=== PATIENT | female | born 1955 | race Two or more races ===

== ENCOUNTER 2017-08-16 00:22 | Inpatient (IN) | payer SELFPAY ==
[~2017-08-16] VITALS: Ht 154.9 cm; Wt 50.8 kg
[2017-08-16] MEDS ORDERED: IPRATROPIUM BROMIDE (0.02%) 0.5MG/2.5ML NEB HHN SCH (01:19)
[2017-08-16] MEDS ORDERED: ALBUTEROL (0.083%) 2.5MG/3ML NEB HHN SCH (01:19)
[2017-08-16] MEDS ORDERED: METHYLPREDNISOLONE SOD SUCC 125 MG/2 ML VIAL IV SCH (01:19)
[2017-08-16 01:54] LABS: BASOPHILS % 1.1 % (0.0-2.0); EOSINOPHILS % 3.5 % (0.0-5.0); HEMATOCRIT. 38.5 % (36.0-48.0); HEMOGLOBIN. 12.6 g/dL (12.0-16.0); LYMPHOCYTES % 27.9 % (20.0-50.0); MEAN CORPUSCULAR VOLUME 88.9 fL (81.0-99.0); MEAN PLATELET VOLUME 6.7 fl (7.4-10.4); MONOCYTES % 7.9 % (2.0-8.0); NEUTROPHILS % 59.6 % (40.0-76.0); PLATELET 252 x1000/uL (130-400); RED BLOOD CELL COUNT 4.33 mill/uL (4.2-5.4); RED CELL DISTRIBUTION WIDTH 13.6 % (11.6-14.6)
[2017-08-16 02:17] LABS: CARBON DIOXIDE 29 mEq/L (21-32); CHLORIDE 100 mEq/L (98-107); TROPONIN I < 0.02 ng/mL (0.00-0.04)
[2017-08-16] MEDS ORDERED: SODIUM CHLORIDE 0.9% 1,000 ML IV ONE (04:12)
[2017-08-16 06:30] VITALS: BP 154/78
[2017-08-16 08:00] VITALS: BP 154/74
[2017-08-16] MEDS ORDERED: DILTIAZEM HCL 30MG TABLET PO PRN (08:45)
[2017-08-16] MEDS ORDERED: LORAZEPAM 2MG/ML CPJ IV PRN (08:45)
[2017-08-16 09:06] VITALS: BP 154/74
[2017-08-16] MEDS: SODIUM CHLORIDE 0.45% 1,000 ML IV SCH ×2 (09:09→21:52)
[2017-08-16] MEDS: LEVOFLOXACIN 500MG PREMIX 100 ML IV SCH (11:13)
[2017-08-16] MEDS: ENOXAPARIN 40MG/0.4ML SYR SUBCUT SCH (11:14)
[2017-08-16] MEDS ORDERED: NON FORMULARY PATIENT HOME MED EA XX SCH (11:30)
[2017-08-16] MEDS ORDERED: MONT4TAB9 PO (11:38)
[2017-08-16] MEDS ORDERED: ATEN-42 PO (11:43)
[2017-08-16] MEDS ORDERED: MOME13HF INH (11:43)
[2017-08-16] MEDS ORDERED: ASPI-1159 PO (11:43)
[2017-08-16] MEDS ORDERED: LORA-249 PO (11:43)
[2017-08-16] MEDS ORDERED: ALBUTEROL (0.083%) 2.5MG/3ML NEB HHN PRN (11:45)
[2017-08-16 12:07] VITALS: BP 131/63
[2017-08-16 12:37] LABS: T4 FREE 1.42 ng/dL (0.76-1.46)
[2017-08-16 16:34] VITALS: BP 134/64
[2017-08-16] MEDS: METHYLPREDNISOLONE SOD SUCC 40 MG/ML VIAL IV SCH (17:34)
[2017-08-16 20:00] VITALS: BP 133/63
[2017-08-17] VITALS: BP 136/72
[2017-08-17] MEDS: METHYLPREDNISOLONE SOD SUCC 40 MG/ML VIAL IV SCH (05:36)
[2017-08-17 06:00] VITALS: BP 133/66
[2017-08-17 06:11] LABS: CARBON DIOXIDE 30 mEq/L (21-32); CHLORIDE 104 mEq/L (98-107)
[2017-08-17 06:18] LABS: HEMATOCRIT. 36.8 % (36.0-48.0); HEMOGLOBIN. 12.1 g/dL (12.0-16.0); MEAN CORPUSCULAR HEMOGLOBIN 29.1 pg (28.0-32.0); MEAN CORPUSCULAR VOLUME 88.3 fL (81.0-99.0); MEAN PLATELET VOLUME 7.3 fl (7.4-10.4); PLATELET 250 x1000/uL (130-400); RED BLOOD CELL COUNT 4.17 mill/uL (4.2-5.4); RED CELL DISTRIBUTION WIDTH 13.5 % (11.6-14.6)
[2017-08-17 08:00] VITALS: BP 129/65
[2017-08-17] MEDS: LEVOFLOXACIN 500MG PREMIX 100 ML IV SCH (10:05)
[2017-08-17] MEDS: ENOXAPARIN 40MG/0.4ML SYR SUBCUT SCH ×2 (10:05→10:07)
[2017-08-17] MEDS: SODIUM CHLORIDE 0.9% INJ 3ML FLUSH IVF SCH ×2 (10:06→14:00)
[2017-08-17 12:31] VITALS: BP 129/65
[2017-08-17 14:01] LABS: PLATELET ESTIMATE NORMAL
[2017-08-17 15:10] VITALS: BP 129/65
== END 2017-08-17 16:00 | disposition home or self-care (01) | DRG 140 ==
LOC: ER 00:23 → 6WST 03:14 → EDBEDREQ 03:24 → UNDOADMIN 04:35 → 6WST 04:35 → ENRESERV 04:48
PROVIDERS: ADMIT Hospitalist; ATTEND Hospitalist
DX: J44.1 Chronic obstructive pulmonary disease with (acute) exacerbation (principal); J45.901 Unspecified asthma with (acute) exacerbation; R73.9 Hyperglycemia, unspecified; Z88.0 Allergy status to penicillin
CPT/HCPCS: 36415; 71010; 80048; 80053; 83880; 84439; 84443; 84484; 85025; 85379; 93005; 94664; 96374; 99285; J1650; J1956; J2060; J2920; J2930; J7030; J7611

== ENCOUNTER 2018-08-15 16:20 | Emergency (ER) | payer OTHER ==
[~2018-08-15] VITALS: Ht 154.9 cm; Wt 64.0 kg
[~2018-08-15 16:20] MED LIST: ASPI-1159 PO; ATEN-42 PO; LORA-249 PO; MOME13HF INH; MONT4TAB9 PO
[2018-08-15] MEDS ORDERED: IPRATROPIUM BROMIDE (0.02%) 0.5MG/2.5ML NEB HHN STA (17:05)
[2018-08-15] MEDS ORDERED: METHYLPREDNISOLONE SOD SUCC 125 MG/2 ML VIAL IV STA (17:05)
[2018-08-15] MEDS ORDERED: ALBUTEROL (0.083%) 2.5MG/3ML NEB HHN STA ×2 (17:05→21:02)
[2018-08-15] MEDS ORDERED: MAGNESIUM 2 G PREMIX 50 ML IV ONE (17:15)
[2018-08-15 18:22] LABS: BASOPHILS % 1.1 % (0.0-2.0); EOSINOPHILS % 5.5 % (0.0-5.0); HEMATOCRIT. 39.7 % (36.0-48.0); HEMOGLOBIN. 13.1 g/dL (12.0-16.0); LYMPHOCYTES % 27.9 % (20.0-50.0); MEAN CORPUSCULAR HEMOGLOBIN 29.8 pg (28.0-32.0); MEAN CORPUSCULAR VOLUME 90.6 fL (81.0-99.0); MEAN PLATELET VOLUME 7.3 fl (7.4-10.4); MONOCYTES % 10.7 % (2.0-8.0); NEUTROPHILS % 54.8 % (40.0-76.0); PLATELET 225 x1000/uL (130-400); RED BLOOD CELL COUNT 4.39 mill/uL (4.2-5.4); RED CELL DISTRIBUTION WIDTH 13.5 % (11.6-14.6)
[2018-08-15 18:23] LABS: CHLORIDE 103 mEq/L (98-107)
[2018-08-15 21:59] VITALS: BP 132/77
== END 2018-08-15 22:00 | disposition home or self-care (01) ==
LOC: ER 16:41
DX: J44.1 Chronic obstructive pulmonary disease with (acute) exacerbation (principal); J06.9 Acute upper respiratory infection, unspecified; R73.9 Hyperglycemia, unspecified; Z79.82 Long term (current) use of aspirin; Z88.0 Allergy status to penicillin; Z79.899 Other long term (current) drug therapy
CPT/HCPCS: 71045; 80053; 83880; 84484; 85025; 93005; 94640; 96365; 96375; 99285; J2930; J3475; J7611

== ENCOUNTER 2020-11-20 18:33 | Emergency (ER) | payer MEDICARE, OTHER ==
[~2020-11-20] VITALS: Ht 160 cm; Wt 61.0 kg
[~2020-11-20 18:33] MED LIST changes: -ASPI-1159 PO; +ASPI-1497 PO
[2020-11-20] MEDS ORDERED: ACETAMINOPHEN 325MG TABLET PO STA (18:57)
[2020-11-20] MEDS ORDERED: LORAZEPAM 1MG TABLET PO ONE (19:45)
[2020-11-20] MEDS ORDERED: ATENOLOL 50 MG TABLET PO ONE (19:45)
[2020-11-20 20:27] LABS: BASOPHILS % 0.9 % (0.0-2.0); EOSINOPHILS % 0.4 % (0.0-5.0); HEMATOCRIT. 43.5 % (36.0-48.0); HEMOGLOBIN. 14.3 g/dL (12.0-16.0); LYMPHOCYTES % 17.4 % (20.0-50.0); MEAN CORPUSCULAR HEMOGLOBIN 28.5 pg (28.0-32.0); MEAN CORPUSCULAR VOLUME 86.9 fL (81.0-99.0); MEAN PLATELET VOLUME 7.9 fl (7.4-10.4); MONOCYTES % 14.7 % (2.0-8.0); NEUTROPHILS % 66.6 % (40.0-76.0); PLATELET 199 x1000/uL (130-400); RED BLOOD CELL COUNT 5.01 mill/uL (4.2-5.4); RED CELL DISTRIBUTION WIDTH 13.5 % (11.6-14.6)
[2020-11-20 22:53] LABS: CHLORIDE 100 mEq/L (98-107)
[2020-11-21 00:42] VITALS: BP 101/60
[2020-11-21] MEDS ORDERED: ATEN-42 PO (01:16)
== END 2020-11-21 01:47 | disposition home or self-care (01) ==
LOC: ER 18:33 → CANBEDREQ 11-21 16:08
DX: R00.0 Tachycardia, unspecified (principal); F41.9 Anxiety disorder, unspecified; Z76.0 Encounter for issue of repeat prescription; J45.909 Unspecified asthma, uncomplicated; Z79.82 Long term (current) use of aspirin
CPT/HCPCS: 36415; 80048; 80076; 83605; 84145; 84484; 85025; 85379; 93005; 99284

== ENCOUNTER 2023-03-13 00:55 | Inpatient (IN) | payer OTHER ==
[~2023-03-13] VITALS: Ht 152.4 cm; Wt 57.2 kg
[~2023-03-13 00:55] MED LIST changes: -MOME13HF INH; +MOME13HF11 INH
[2023-03-13] MEDS ORDERED: ALBUTEROL (0.083%) 2.5MG/3ML NEB HHN STA (01:41)
[2023-03-13] MEDS ORDERED: IPRATROPIUM BROMIDE (0.02%) 0.5MG/2.5ML NEB HHN STA (01:41)
[2023-03-13] MEDS ORDERED: METHYLPREDNISOLONE SOD SUCC 125 MG/2 ML VIAL IV STA (01:41)
[2023-03-13 03:04] LABS: HEMATOCRIT. 38.8 % (36.0-48.0); HEMOGLOBIN. 13.1 g/dL (12.0-16.0); MEAN CORPUSCULAR HEMOGLOBIN 29.5 pg (28.0-32.0); MEAN CORPUSCULAR VOLUME 87.2 fL (81.0-99.0); MEAN PLATELET VOLUME 7.5 fl (7.4-10.4); PLATELET 380 x1000/uL (130-400); RED BLOOD CELL COUNT 4.44 mill/uL (4.2-5.4); RED CELL DISTRIBUTION WIDTH 13.4 % (11.6-14.6)
[2023-03-13 03:42] LABS: PLATELET ESTIMATE NORMAL
[2023-03-13 03:45] LABS: CHLORIDE 92 mEq/L (98-107)
[2023-03-13] MEDS ORDERED: IPRATROPIUM/ALBUTEROL 0.5-3(2.5)MG/3ML NEB HHN ONE (04:30)
[2023-03-13] MEDS ORDERED: ACETAMINOPHEN 325MG TABLET PO PRN ×2 (06:30)
[2023-03-13] MEDS ORDERED: AZITHROMYCIN 500 MG in DEXT 5% WATER 250 ML IV SCH ×2 (06:30→06:45)
[2023-03-13] MEDS ORDERED: CLONIDINE 0.1MG TABLET PO PRN (06:30)
[2023-03-13] MEDS ORDERED: ONDANSETRON HCL 4MG/2ML INJ IV PRN (06:30)
[2023-03-13] MEDS ORDERED: MAGNESIUM/ALUMINUM HYDROXIDE/SIMETHICONE 30ML UDC PO PRN (06:30)
[2023-03-13] MEDS ORDERED: DOCUSATE SODIUM 100MG CAPSULE PO PRN (06:30)
[2023-03-13] MEDS ORDERED: AZITHROMYCIN 500MG/250ML 250 ML IV SCH (07:00)
[2023-03-13] MEDS: SODIUM CHLORIDE 0.9% 1,000 ML IV SCH ×2 (07:06→16:41)
[2023-03-13] MEDS: ENOXAPARIN 40MG/0.4ML SYR SUBCUT SCH (07:11)
[2023-03-13 07:16] LABS: HEMATOCRIT. 38.6 % (36.0-48.0); MEAN CORPUSCULAR HEMOGLOBIN 29.4 pg (28.0-32.0); MEAN PLATELET VOLUME 6.9 fl (7.4-10.4); PLATELET 381 x1000/uL (130-400); RED BLOOD CELL COUNT 4.44 mill/uL (4.2-5.4); RED CELL DISTRIBUTION WIDTH 13.4 % (11.6-14.6)
[2023-03-13 07:25] LABS: CHLORIDE 90 mEq/L (98-107)
[2023-03-13 07:40] LABS: HDL CHOLESTEROL 74 mg/dL (40-59); LDL CHOLESTEROL 90 mg/dL (5-100); T4 FREE 1.35 ng/dL (0.76-1.46)
[2023-03-13 08:34] LABS: BG BASE EXCESS 5.6 mmol/L (-2.0-2.0); BG CARBOXYHEMOGLOBIN 0.4 % (0.5-1.5); BG DEOXYHEMOGLOBIN 4.1 % (0.0-5.0); BG FRACTION INSPIRED OXYGEN 30; BG HCO3 ACT 31.8 mmol/L (22.0-26.0); BG METHEMOGLOBIN 0.3 % (0.0-1.5); BG OXYGEN SATURATION 95.9 % (92.0-98.5); BG OXYHEMOGLOBIN 95.2 % (94.0-97.0); BG PH 7.396 (7.350-7.450); BG PO2 81.4 mmHg (75.0-100.0); BG SAMPLE SITE RIGHT RADIAL; BG TOTAL HEMOGLOBIN 13.8 g/dL (12.0-18.0); BG VENT MODE MASK - BIPAP
[2023-03-13 09:01] LABS: FOLIC ACID (FOLATE) SERUM >20 ng/mL ng/mL (>5.38); VITAMIN B12 SERUM >2000 pg/mL pg/mL (211-911)
[2023-03-13 09:21] LABS: PLATELET ESTIMATE NORMAL
[2023-03-13 10:10] LABS: CLARITY URINE CLEAR (CLEAR); COLOR URINE YELLOW (YELLOW); KETONES URINE TRACE (NEGATIVE); LEUKOCYTE ESTERASE URINE NEGATIVE (NEGATIVE); NITRITE URINE NEGATIVE (NEGATIVE); OCCULT BLOOD URINE TRACE (NEGATIVE); PH URINE 6.5 (4.5-8.0); PROTEIN URINE NEGATIVE (NEGATIVE); SPECIFIC GRAVITY URINE 1.011 (1.005-1.030); UROBILINOGEN URINE 0.2 E.U./dL (0.2-1.0)
[2023-03-13] MEDS ORDERED: IPRATROPIUM/ALBUTEROL 0.5-3(2.5)MG/3ML NEB HHN PRN (11:00)
[2023-03-13 12:00] VITALS: BP 144/107
[2023-03-13] MEDS: IPRATROPIUM/ALBUTEROL 0.5-3(2.5)MG/3ML NEB HHN SCH ×2 (12:16→20:35)
[2023-03-13] MEDS: LISINOPRIL 20MG TABLET PO SCH (13:24)
[2023-03-13 14:00] VITALS: BP 126/70
[2023-03-13] MEDS ORDERED: DEXTROSE 50% WATER 50ML SYRINGE IV PRN (15:30)
[2023-03-13 16:00] VITALS: BP 125/59
[2023-03-13] MEDS: METHYLPREDNISOLONE SOD SUCC 125 MG/2 ML VIAL IV SCH ×2 (16:41→22:42)
[2023-03-13] MEDS: GUAIFENESIN 200MG/10ML SUGAR FREE UDC PO PRN ×2 (17:28→22:41)
[2023-03-13] MEDS: INSULIN LISPRO 100 UNITS/ML SUBCUT SCH ×2 (17:29→20:49)
[2023-03-13] MEDS: BLOOD SUGAR DIAGNOSTIC STRIP TEST SCH ×2 (17:30→20:41)
[2023-03-13 17:49] VITALS: BP 112/57
[2023-03-13 20:00] VITALS: BP 138/65
[2023-03-13] MEDS ORDERED: FAMOTIDINE 20MG TABLET PO SCH (21:00)
[2023-03-13 22:01] VITALS: BP 153/102
[2023-03-14] VITALS (13 sets, daily range): BP systolic 119–142; BP diastolic 52–79
[2023-03-14] MEDS: THROAT LOZENGES-BENZOCAINE/MENTH/CETYLPYRD CL LOZENGES MM PRN ×3 (00:08→20:44)
[2023-03-14] MEDS: IPRATROPIUM/ALBUTEROL 0.5-3(2.5)MG/3ML NEB HHN SCH ×7 (00:11→20:00)
[2023-03-14] MEDS: GUAIFENESIN 200MG/10ML SUGAR FREE UDC PO PRN ×2 (04:04→20:44)
[2023-03-14] MEDS: ENOXAPARIN 40MG/0.4ML SYR SUBCUT SCH (05:31)
[2023-03-14] MEDS: BLOOD SUGAR DIAGNOSTIC STRIP TEST SCH ×4 (07:30→20:38)
[2023-03-14] MEDS: INSULIN LISPRO 100 UNITS/ML SUBCUT SCH ×4 (08:00→20:43)
[2023-03-14] MEDS: METHYLPREDNISOLONE SOD SUCC 125 MG/2 ML VIAL IV SCH ×3 (08:18→22:34)
[2023-03-14] MEDS: AZITHROMYCIN 500MG in DEXTROSE 5% WATER 250ML IV SCH (08:18)
[2023-03-14] MEDS: LISINOPRIL 20MG TABLET PO SCH (08:22)
[2023-03-14] MEDS ORDERED: LORAZEPAM 1MG TABLET PO PRN (10:00)
[2023-03-14] MEDS: SODIUM CHLORIDE 0.9% 1,000 ML IV SCH (11:24)
[2023-03-14] MEDS: MONTELUKAST SODIUM 10MG TABLET PO SCH (18:11)
[2023-03-14] MEDS ORDERED: ACETYLCYSTEINE 200MG/ML 20% VIAL 4ML INH SCH (22:00)
[2023-03-15] VITALS: BP 118/71
[2023-03-15 04:00] VITALS: BP 140/75
[2023-03-15] MEDS: IPRATROPIUM/ALBUTEROL 0.5-3(2.5)MG/3ML NEB HHN SCH ×5 (04:01→20:17)
[2023-03-15] MEDS: SODIUM CHLORIDE 0.9% 1,000 ML IV SCH ×2 (04:06→12:01)
[2023-03-15] MEDS: GUAIFENESIN 200MG/10ML SUGAR FREE UDC PO PRN ×2 (05:33→13:57)
[2023-03-15] MEDS: THROAT LOZENGES-BENZOCAINE/MENTH/CETYLPYRD CL LOZENGES MM PRN (05:33)
[2023-03-15] MEDS: ENOXAPARIN 40MG/0.4ML SYR SUBCUT SCH (05:35)
[2023-03-15] MEDS: ACETYLCYSTEINE 100MG/ML 10% VIAL 4ML INH SCH ×2 (07:31→16:12)
[2023-03-15] MEDS: BLOOD SUGAR DIAGNOSTIC STRIP TEST SCH ×4 (07:42→21:26)
[2023-03-15 08:00] VITALS: BP 136/73
[2023-03-15] MEDS: LISINOPRIL 20MG TABLET PO SCH (08:17)
[2023-03-15] MEDS: METHYLPREDNISOLONE SOD SUCC 125 MG/2 ML VIAL IV SCH ×3 (08:17→23:28)
[2023-03-15] MEDS: AZITHROMYCIN 500MG in DEXTROSE 5% WATER 250ML IV SCH (08:17)
[2023-03-15] MEDS: INSULIN LISPRO 100 UNITS/ML SUBCUT SCH ×4 (08:25→21:00)
[2023-03-15 12:00] VITALS: BP 151/80
[2023-03-15] MEDS: FAMOTIDINE 20MG TABLET PO SCH (12:00)
[2023-03-15] MEDS ORDERED: METOPROLOL TARTRATE 5MG/5ML VIAL IV SCH (13:40)
[2023-03-15] MEDS ORDERED: AMIODARONE HCL 900 MG in DEXT 5% WATER 482 ML IV PRN (14:30)
[2023-03-15] MEDS ORDERED: AMIODARONE HCL 150 MG in DEXT 5% WATER 100 ML IV SCH (14:30)
[2023-03-15] MEDS ORDERED: DIGOXIN 500MCG/2ML AMP IV SCH (14:45)
[2023-03-15] MEDS: ASPIRIN 81MG EC TABLET PO SCH (15:34)
[2023-03-15 16:00] VITALS: BP 117/83
[2023-03-15] MEDS: MONTELUKAST SODIUM 10MG TABLET PO SCH (16:09)
[2023-03-15] MEDS: DILTIAZEM HCL 60MG TABLET PO SCH ×2 (17:53→23:30)
[2023-03-15 20:00] VITALS: BP 108/55
[2023-03-16] VITALS: BP 128/72
[2023-03-16] MEDS: ACETYLCYSTEINE 100MG/ML 10% VIAL 4ML INH SCH ×3 (00:06→16:35)
[2023-03-16] MEDS: IPRATROPIUM/ALBUTEROL 0.5-3(2.5)MG/3ML NEB HHN SCH ×6 (00:06→20:48)
[2023-03-16] MEDS: SODIUM CHLORIDE 0.9% 1,000 ML IV SCH (01:10)
[2023-03-16 04:00] VITALS: BP 123/65
[2023-03-16] MEDS: DILTIAZEM HCL 60MG TABLET PO SCH ×4 (06:15→23:24)
[2023-03-16] MEDS: ENOXAPARIN 40MG/0.4ML SYR SUBCUT SCH (06:16)
[2023-03-16] MEDS: BLOOD SUGAR DIAGNOSTIC STRIP TEST SCH ×4 (07:54→20:42)
[2023-03-16 08:00] VITALS: BP 125/69
[2023-03-16] MEDS: METHYLPREDNISOLONE SOD SUCC 125 MG/2 ML VIAL IV SCH ×3 (08:11→23:21)
[2023-03-16] MEDS: AZITHROMYCIN 500MG in DEXTROSE 5% WATER 250ML IV SCH (08:11)
[2023-03-16] MEDS: FAMOTIDINE 20MG TABLET PO SCH (08:11)
[2023-03-16] MEDS: INSULIN LISPRO 100 UNITS/ML SUBCUT SCH ×4 (08:12→21:16)
[2023-03-16] MEDS: ASPIRIN 81MG EC TABLET PO SCH (08:12)
[2023-03-16 12:00] VITALS: BP 139/56
[2023-03-16] MEDS: GUAIFENESIN 200MG/10ML SUGAR FREE UDC PO PRN ×2 (12:10→20:39)
[2023-03-16] MEDS: THROAT LOZENGES-BENZOCAINE/MENTH/CETYLPYRD CL LOZENGES MM PRN ×2 (12:26→20:39)
[2023-03-16 16:00] VITALS: BP 146/91
[2023-03-16] MEDS: MONTELUKAST SODIUM 10MG TABLET PO SCH (16:17)
[2023-03-16 17:13] LABS: HEMATOCRIT. 37.5 % (36.0-48.0); HEMOGLOBIN. 12.5 g/dL (12.0-16.0); MEAN CORPUSCULAR HEMOGLOBIN 29.2 pg (28.0-32.0); MEAN PLATELET VOLUME 7.2 fl (7.4-10.4); PLATELET 380 x1000/uL (130-400); RED BLOOD CELL COUNT 4.26 mill/uL (4.2-5.4); RED CELL DISTRIBUTION WIDTH 13.2 % (11.6-14.6)
[2023-03-16 17:18] LABS: CHLORIDE 95 mEq/L (98-107)
[2023-03-16 20:00] VITALS: BP 160/64
[2023-03-16 21:31] LABS: PLATELET ESTIMATE NORMAL
[2023-03-17] VITALS (7 sets, daily range): BP systolic 128–156; BP diastolic 63–86
[2023-03-17] MEDS: ACETYLCYSTEINE 100MG/ML 10% VIAL 4ML INH SCH ×2 (00:13→08:32)
[2023-03-17] MEDS: IPRATROPIUM/ALBUTEROL 0.5-3(2.5)MG/3ML NEB HHN SCH ×4 (00:13→12:08)
[2023-03-17] MEDS: DILTIAZEM HCL 60MG TABLET PO SCH ×2 (05:51→11:40)
[2023-03-17] MEDS: METHYLPREDNISOLONE SOD SUCC 125 MG/2 ML VIAL IV SCH ×2 (05:51→15:14)
[2023-03-17] MEDS: GUAIFENESIN 200MG/10ML SUGAR FREE UDC PO PRN ×2 (05:51→11:05)
[2023-03-17] MEDS: ENOXAPARIN 40MG/0.4ML SYR SUBCUT SCH (05:52)
[2023-03-17] MEDS: THROAT LOZENGES-BENZOCAINE/MENTH/CETYLPYRD CL LOZENGES MM PRN (05:55)
[2023-03-17] MEDS: BLOOD SUGAR DIAGNOSTIC STRIP TEST SCH ×2 (08:01→12:30)
[2023-03-17] MEDS: ASPIRIN 81MG EC TABLET PO SCH (08:11)
[2023-03-17] MEDS: AZITHROMYCIN 500MG in DEXTROSE 5% WATER 250ML IV SCH (08:11)
[2023-03-17] MEDS: FAMOTIDINE 20MG TABLET PO SCH (08:11)
[2023-03-17] MEDS: INSULIN LISPRO 100 UNITS/ML SUBCUT SCH ×2 (08:15→13:00)
== END 2023-03-17 17:24 | disposition home or self-care (01) | DRG 189 ==
LOC: ER 00:55 → 5EST 05:36 → EDBEDREQ 05:47 → 5EST 11:00
PROVIDERS: ADMIT Hospitalist; ATTEND Hospitalist
PROC: 5A09357 Assistance with Respiratory Ventilation, Less than 24 Consecutive Hours, Continuous Positive Airway Pressure (ICD-10-PCS; principal; 2023-03-13)
PROC: 5A09357 Assistance with Respiratory Ventilation, Less than 24 Consecutive Hours, Continuous Positive Airway Pressure (ICD-10-PCS; 2023-03-14)
PROC: 5A09357 Assistance with Respiratory Ventilation, Less than 24 Consecutive Hours, Continuous Positive Airway Pressure (ICD-10-PCS; 2023-03-17)
DX: J96.01 Acute respiratory failure with hypoxia (principal); J44.1 Chronic obstructive pulmonary disease with (acute) exacerbation; E87.1 Hypo-osmolality and hyponatremia; J44.0 Chronic obstructive pulmonary disease with (acute) lower respiratory infection; I10 Essential (primary) hypertension; E78.5 Hyperlipidemia, unspecified; I48.91 Unspecified atrial fibrillation; D72.829 Elevated white blood cell count, unspecified; E11.9 Type 2 diabetes mellitus without complications; Z88.0 Allergy status to penicillin; Z79.899 Other long term (current) drug therapy
CPT/HCPCS: 36415; 36600; 71045; 80053; 80061; 81003; 82375; 82607; 82746; 82805; 82962; 83036; 83605; 83880; 84145; 84439; 84443; 84484; 85025; 85379; 93005; 93306; 93970; 94640; 94660; 97161; 99291; J0282; J0456; J1160; J1650; J1815; J2930; J3490; J7030; J7060; J7608

== ENCOUNTER 2025-05-24 19:42 | Emergency (ER) | payer OTHER ==
[~2025-05-24] VITALS: Ht 157.5 cm; Wt 54.0 kg
[~2025-05-24 19:42] MED LIST changes: +MONT4TAB71 PO; -MONT4TAB9 PO
[2025-05-24 20:00] VITALS: O2SAT 95
[2025-05-24 21:42] LABS: BASOPHILS % 0.7 % (0.0-2.0); EOSINOPHILS % 1.7 % (0.0-5.0); HEMATOCRIT. 36.6 % (36.0-48.0); HEMOGLOBIN. 12.2 g/dL (12.0-16.0); LYMPHOCYTES % 8.9 % (20.0-50.0); MEAN PLATELET VOLUME 6.6 fl (7.4-10.4); MONOCYTES % 9.6 % (2.0-8.0); NEUTROPHILS % 79.1 % (40.0-76.0); PLATELET 335 x1000/uL (130-400); RED BLOOD CELL COUNT 4.35 mill/uL (4.2-5.4); RED CELL DISTRIBUTION WIDTH 14.4 % (11.6-14.6)
[2025-05-24 21:50] LABS: CREATININE 0.9 mg/dL (0.6-1.0)
[2025-05-24 21:51] LABS: UREA NITROGEN BLOOD 16 mg/dL (9-23)
[2025-05-24 21:52] LABS: TROPONIN I HIGH SENSITIVITY 4 ng/L (3.0-34)
[2025-05-24] MEDS ORDERED: SODIUM CHLORIDE 0.9% 1,000 ML IV NR (22:15)
[2025-05-25 00:05] VITALS: BP 134/63; PULSE 79; RESP 20; TEMP 36.6; O2SAT 98
== END 2025-05-25 00:20 | disposition short-term general hospital (02) ==
LOC: ER 19:42 → EDBEDREQ 21:14 → ER 05-25 00:20
DX: R00.2 Palpitations (principal); F41.0 Panic disorder [episodic paroxysmal anxiety]; E87.8 Other disorders of electrolyte and fluid balance, not elsewhere classified; E78.00 Pure hypercholesterolemia, unspecified; I10 Essential (primary) hypertension; I48.91 Unspecified atrial fibrillation; Z79.51 Long term (current) use of inhaled steroids; Z79.82 Long term (current) use of aspirin; Z79.899 Other long term (current) drug therapy; Z88.0 Allergy status to penicillin; Z88.6 Allergy status to analgesic agent
CPT/HCPCS: 36415; 71045; 80048; 83880; 84484; 85025; 85379; 99285